=== PATIENT | female | born 1995 | race Caucasian/White ===

== ENCOUNTER 2020-05-27 12:26 | Emergency (ER) | payer OTHER ==
[~2020-05-27] VITALS: Ht 162.6 cm; Wt 66.7 kg
[2020-05-27 12:36] VITALS: BP 143/108; Ht 162.6 cm; Wt 66.7 kg
[2020-05-27] MEDS ORDERED: BACLOFEN10 MG PO (12:53)
[2020-05-27] MEDS ORDERED: ULTRAM50 MG PO (12:53)
[2020-05-27] MEDS ORDERED: IBU600 M2 PO (12:53)
== END 2020-05-27 13:07 | disposition home or self-care (01) ==
LOC: ED 12:26
DX: S16.1XXA Strain of muscle, fascia and tendon at neck level, initial encounter (principal); S39.012A Strain of muscle, fascia and tendon of lower back, initial encounter; V49.49XA Driver injured in collision with other motor vehicles in traffic accident, initial encounter; Y93.I9 Activity, other involving external motion; Y92.413 State road as the place of occurrence of the external cause; Y99.8 Other external cause status